=== PATIENT | male | born 1940 | race Caucasian/White ===

== ENCOUNTER → 2016-06-14 | Day surgery (SDC) | payer MEDICARE, OTHER ==
[~2016-06-14] VITALS: Ht 175.3 cm; Wt 94.6 kg
[~2016-06-14] MED LIST: ACETAMINOPHEN325 MG PO; ADVAIR 250/5028 PUFF INH; ADVAIR HFA 115-28 GM INH; ALLOPURINOL300 MG PO; AMARYL2 MG PO; AMLODIPINE BESY10 MG PO; ANTACID LIQUID355 ML PO; ASPIRIN CHEWABL81 MG PO; ASPIRIN EC325 MG PO; ATROVENT (00.2 MG/ML INH; CERTAGEN1 EACH PO; CLARITIN10 MG PO; COLACE100 MG PO; CRANBERRY500 M1 PO; CRESTOR40 M1 PO; CRESTOR40 MG PO; DEXAMETHASONE 2M2 MG PO; DUONEB 2.5-0.5M1 AMP NEB; FLEET ENEMA133 ML PR; FLONASE ALLER15.8 ML; FLORINEF0.1 MG PO; FOLIC ACID1 MG PO; HUMULIN R100 UNIT/1 SQ; IMDUR 30MG TABL30 MG PO; ISOSORBIDE MONO60 MG PO; K-DUR20 MEQ PO; KLOR-CON M2020 MEQ PO; LACTINEX1 EACH PO; LASIX20 MG PO; LASIX40 MG PO; LAXATIVE SUPPOS10 MG PR; LIDOCAINE VISC100 ML SSW; LIPITOR40 MG PO; LOPRESSOR100 MG PO; LOPRESSOR25 MG PO; LOVENOX40 MG/0.1 PO; MAG-OXIDE 400M400 MG PO; MAGNESIUM250 MG PO; MEGACE ORA6 TSP/1 OZ PO; MEGACE40 MG PO; MILK OF MA400 MG/5 M PO; MUCINEX 600MG600 MG PO; NITROQUIK SL0.4 MG PO; NORCO 5-325 TA1 EAC1 PO; NYSTATIN SUSP1 ML/ML PO; OMEPRAZOLE40 MG PO; PANTOPRAZOLE SO20 MG PO; PLAVIX75 MG PO; PREVALITE4 GM PO; PROAIR HFA8.5 GM INH; PROAIR HFA8.5 GM PO; PROTONIX 40MG T40 MG PO; RANEXA1000 MG PO; RANEXA500 MG PO; SENOKOT8.6 MG PO; SPIRIVA18 MCG INH; TYLENOL650 MG PR; VANCOCIN HCL125 MG PO; VANCOMYCIN HCL125 MG PO; XOPENEX (11.25 MG/3 INH; ZOLOFT25 MG PO
== END | disposition home or self-care (01) ==
LOC: FAS 12:35
DX: I87.2 Venous insufficiency (chronic) (peripheral) (principal); I25.119 Atherosclerotic heart disease of native coronary artery with unspecified angina pectoris; I10 Essential (primary) hypertension; E11.9 Type 2 diabetes mellitus without complications; E78.5 Hyperlipidemia, unspecified; G47.33 Obstructive sleep apnea (adult) (pediatric); Z82.49 Family history of ischemic heart disease and other diseases of the circulatory system; Z87.891 Personal history of nicotine dependence; Z79.82 Long term (current) use of aspirin; Z79.2 Long term (current) use of antibiotics; Z79.84 Long term (current) use of oral hypoglycemic drugs; Z79.02 Long term (current) use of antithrombotics/antiplatelets; Z79.899 Other long term (current) drug therapy
CPT/HCPCS: 71010; 76000; C1788; J1644; J2704; J3010

== ENCOUNTER 2016-08-25 22:01 | Inpatient (IN) | payer MEDICARE, OTHER ==
[~2016-08-25] VITALS: Ht 175.3 cm; Wt 80.7 kg
[2016-08-25 23:51] LABS: BASOPHIL 0.7 % (0-2); EOSINOPHIL 3.1 % (0-7); HCT 35.4 % (42.0-52.0); HGB 12.4 g/dl (13.2-18.0); LYMPHOCYTE 11.8 % (15-48); MCV 88.5 fL (78.0-100.0); MPV 9.9 fL (6.0-9.5); NEUTROPHIL 52.3 % (41-80); PLT 243 K/uL (150-400); RDW 17.7 % (11.5-14.0); WBC 5.4 K/uL (4.0-10.5)
[2016-08-25 23:54] LABS: MONOCYTE 32.1 % (0-12)
[2016-08-26 00:04] LABS: INR 1.19 (0.9-1.2); PROTHROMBIN TIME 14.7 SECONDS (11.7-14.0); PTT 28.8 SECONDS (23.2-31.4)
[2016-08-26 00:06] LABS: D-DIMER 0.69 ug/mLFEU (0.00-0.41)
[2016-08-26 00:15] LABS: TROPONIN T < 0.010 ng/mL
[2016-08-26 00:19] LABS: PRO-BNP 1890 pg/mL (0-450)
[2016-08-26 00:33] LABS: ALBUMIN 3.1 g/dL (3.4-4.8); BILIRUBIN - TOTAL 0.6 mg/dL (0.1-1.0); GLOBULIN (CALCULATION) 2.5 g/dL (2.2-4.2); TOTAL PROTEIN 5.6 g/dL (6.4-8.3)
[2016-08-26 06:40] LABS: CREATININE 1.1 mg/dL (0.7-1.2); MAGNESIUM 1.58 mg/dL (1.40-2.10); POTASSIUM 2.7 mmol/L (3.5-5.1)
[2016-08-26 06:43] LABS: TROPONIN T < 0.010 ng/mL
[2016-08-26 13:02] LABS: TROPONIN T < 0.010 ng/mL
[2016-08-27 04:35] LABS: HCT 34.7 % (42.0-52.0); HGB 11.8 g/dl (13.2-18.0); MCH 30.2 pg (25.0-31.0); MCV 88.7 fL (78.0-100.0); MPV 9.9 fL (6.0-9.5); RBC 3.91 M/uL (4.70-6.00); RDW 17.7 % (11.5-14.0); WBC 5.4 K/uL (4.0-10.5)
[2016-08-27 04:54] LABS: CREATININE 1.2 mg/dL (0.7-1.2); MAGNESIUM 1.66 mg/dL (1.40-2.10); POTASSIUM 3.4 mmol/L (3.5-5.1)
[2016-08-28 05:07] LABS: CREATININE 1.2 mg/dL (0.7-1.2); MAGNESIUM 1.52 mg/dL (1.40-2.10); POTASSIUM 3.5 mmol/L (3.5-5.1)
[2016-08-28] MEDS ORDERED: AMARYL2 MG PO (14:12)
[2016-08-28] MEDS ORDERED: LOPRESSOR100 MG PO (14:12)
[2016-08-28] MEDS ORDERED: CRESTOR40 MG PO (14:13)
[2016-08-28] MEDS ORDERED: PLAVIX75 MG PO (14:13)
[2016-08-28] MEDS ORDERED: RANEXA1000 MG PO (14:13)
[2016-08-28] MEDS ORDERED: K-DUR20 MEQ PO (14:14)
[2016-08-28] MEDS ORDERED: ISOSORBIDE MONO60 MG PO (14:14)
[2016-08-28] MEDS ORDERED: AMLODIPINE BESY10 MG PO (14:14)
[2016-08-28] MEDS ORDERED: LASIX20 MG PO (14:14)
[2016-08-28] MEDS ORDERED: OMEPRAZOLE40 MG PO (14:16)
[2016-08-28] MEDS ORDERED: ASPIRIN EC325 MG PO (14:16)
[2016-08-28] MEDS ORDERED: CRANBERRY500 M1 PO (14:17)
[2016-08-28] MEDS ORDERED: CERTAGEN1 EACH PO (14:17)
[2016-08-28] MEDS ORDERED: MAGNESIUM250 MG PO (14:17)
[2016-08-28] MEDS ORDERED: MUCINEX 600MG600 MG PO (14:18)
[2016-08-28] MEDS ORDERED: CLARITIN10 MG PO (14:18)
[2016-08-28] MEDS ORDERED: ALLOPURINOL300 MG PO (14:18)
[2016-08-28] MEDS ORDERED: FLONASE ALLER15.8 ML (14:19)
[2016-08-28] MEDS ORDERED: SPIRIVA18 MCG INH (14:19)
[2016-08-28] MEDS ORDERED: NITROQUIK SL0.4 MG PO (14:20)
[2016-08-28] MEDS ORDERED: DEXAMETHASONE 2M2 MG PO (14:21)
[2016-08-28] MEDS ORDERED: PROAIR HFA8.5 GM PO (14:21)
[2016-11-04] MEDS ORDERED: HUMULIN R100 UNIT/1 SQ (15:36)
[2016-11-04] MEDS ORDERED: FLONASE ALLER15.8 ML (15:37)
[2016-11-04] MEDS ORDERED: LIDOCAINE VISC100 ML SSW (15:42)
[2016-11-04] MEDS ORDERED: LOPRESSOR25 MG PO (15:44)
[2016-11-04] MEDS ORDERED: FLORINEF0.1 MG PO (15:44)
[2016-11-04] MEDS ORDERED: MAG-OXIDE 400M400 MG PO (15:44)
[2016-11-04] MEDS ORDERED: K-DUR20 MEQ PO (15:45)
[2016-11-04] MEDS ORDERED: LASIX40 MG PO (15:46)
[2016-11-04] MEDS ORDERED: MUCINEX 600MG600 MG PO (15:46)
[2016-11-04] MEDS ORDERED: FOLIC ACID1 MG PO (15:46)
[2016-11-04] MEDS ORDERED: ZOLOFT25 MG PO (15:47)
[2016-11-04] MEDS ORDERED: PROTONIX 40MG T40 MG PO (15:47)
[2016-11-04] MEDS ORDERED: NORCO 5-325 TA1 EAC1 PO (15:49)
[2016-11-04] MEDS ORDERED: LOVENOX40 MG/0.1 PO (15:49)
[2016-11-04] MEDS ORDERED: AMARYL2 MG PO (15:50)
[2016-11-04] MEDS ORDERED: PLAVIX75 MG PO (15:50)
[2016-11-04] MEDS ORDERED: RANEXA500 MG PO (15:52)
[2016-11-04] MEDS ORDERED: CRESTOR40 M1 PO (15:52)
[2016-11-04] MEDS ORDERED: FLEET ENEMA133 ML PR (15:53)
[2016-11-04] MEDS ORDERED: ASPIRIN EC325 MG PO (15:53)
[2016-11-04] MEDS ORDERED: COLACE100 MG PO ×2 (15:53→15:56)
[2016-11-04] MEDS ORDERED: ANTACID LIQUID355 ML PO (15:54)
[2016-11-04] MEDS ORDERED: ACETAMINOPHEN325 MG PO (15:55)
[2016-11-04] MEDS ORDERED: TYLENOL650 MG PR (15:55)
[2016-11-04] MEDS ORDERED: SENOKOT8.6 MG PO (15:56)
[2016-11-04] MEDS ORDERED: LAXATIVE SUPPOS10 MG PR (15:56)
[2016-11-04] MEDS ORDERED: MILK OF MA400 MG/5 M PO (15:57)
[2016-11-04] MEDS ORDERED: ATROVENT (00.2 MG/ML INH ×2 (15:57→15:58)
[2016-11-04] MEDS ORDERED: XOPENEX (11.25 MG/3 INH ×2 (15:57→15:58)
[2016-11-04] MEDS ORDERED: ADVAIR 250/5028 PUFF INH (15:59)
[2016-12-22] MEDS ORDERED: LACTINEX1 EACH PO (14:44)
[2016-12-22] MEDS ORDERED: VANCOCIN HCL125 MG PO (14:45)
[2016-12-22] MEDS ORDERED: MEGACE ORA6 TSP/1 OZ PO (14:48)
[2016-12-22] MEDS ORDERED: PREVALITE4 GM PO (14:49)
[2016-12-24] MEDS ORDERED: LIPITOR40 MG PO (15:12)
[2016-12-24] MEDS ORDERED: PLAVIX75 MG PO (15:12)
[2016-12-24] MEDS ORDERED: ASPIRIN CHEWABL81 MG PO (15:12)
[2016-12-24] MEDS ORDERED: FLORINEF0.1 MG PO (15:13)
[2016-12-24] MEDS ORDERED: FOLIC ACID1 MG PO (15:13)
[2016-12-24] MEDS ORDERED: LASIX20 MG PO (15:14)
[2016-12-24] MEDS ORDERED: FLONASE ALLER15.8 ML (15:14)
[2016-12-24] MEDS ORDERED: MEGACE40 MG PO (15:14)
[2016-12-24] MEDS ORDERED: AMARYL2 MG PO (15:14)
[2016-12-24] MEDS ORDERED: LOPRESSOR25 MG PO (15:14)
[2016-12-24] MEDS ORDERED: MUCINEX 600MG600 MG PO (15:15)
[2016-12-24] MEDS ORDERED: NITROQUIK SL0.4 MG PO (15:16)
[2016-12-24] MEDS ORDERED: NYSTATIN SUSP1 ML/ML PO (15:16)
[2016-12-24] MEDS ORDERED: RANEXA1000 MG PO (15:17)
[2016-12-24] MEDS ORDERED: KLOR-CON M2020 MEQ PO (15:17)
[2016-12-24] MEDS ORDERED: PANTOPRAZOLE SO20 MG PO (15:17)
[2016-12-24] MEDS ORDERED: SPIRIVA18 MCG INH (15:18)
[2016-12-24] MEDS ORDERED: ZOLOFT25 MG PO (15:18)
[2016-12-24] MEDS ORDERED: ADVAIR HFA 115-28 GM INH (15:19)
[2016-12-24] MEDS ORDERED: PROAIR HFA8.5 GM INH (15:19)
[2016-12-24] MEDS ORDERED: VANCOMYCIN HCL125 MG PO (15:20)
== END 2016-08-28 15:15 | disposition home health service (06) | DRG 189 ==
LOC: FER 22:01 → FTCU 08-26 03:21
PROVIDERS: Allergy & Immunology; Emergency Medicine; Internal Medicine; ADMIT Internal Medicine
DX: J81.0 Acute pulmonary edema (principal); J96.01 Acute respiratory failure with hypoxia; C85.10 Unspecified B-cell lymphoma, unspecified site; J44.9 Chronic obstructive pulmonary disease, unspecified; I25.10 Atherosclerotic heart disease of native coronary artery without angina pectoris; E87.6 Hypokalemia; I10 Essential (primary) hypertension; E11.9 Type 2 diabetes mellitus without complications; E78.5 Hyperlipidemia, unspecified; K21.9 Gastro-esophageal reflux disease without esophagitis; N20.0 Calculus of kidney; Z79.899 Other long term (current) drug therapy; Z95.5 Presence of coronary angioplasty implant and graft; Z79.02 Long term (current) use of antithrombotics/antiplatelets; Z79.82 Long term (current) use of aspirin; Z87.891 Personal history of nicotine dependence; Z79.84 Long term (current) use of oral hypoglycemic drugs
CPT/HCPCS: 36415; 36600; 71020; 71275; 80048; 80053; 82550; 82553; 82803; 82962; 83735; 83880; 84132; 84484; 85025; 85379; 85610; 85730; 87804; 87899; 93005; 94640; 94664; J1940; Q9967

== ENCOUNTER 2016-08-31 11:09 | Inpatient (IN) | payer MEDICARE, OTHER ==
[~2016-08-31] VITALS: Ht 175.3 cm; Wt 80.4 kg
[~2016-08-31 11:09] MED LIST changes: -ACETAMINOPHEN325 MG PO; -ADVAIR 250/5028 PUFF INH; -ADVAIR HFA 115-28 GM INH; -ANTACID LIQUID355 ML PO; -ASPIRIN CHEWABL81 MG PO; -ATROVENT (00.2 MG/ML INH; -COLACE100 MG PO; -CRESTOR40 M1 PO; -DUONEB 2.5-0.5M1 AMP NEB; -FLEET ENEMA133 ML PR; -FLORINEF0.1 MG PO; -FOLIC ACID1 MG PO; -HUMULIN R100 UNIT/1 SQ; -IMDUR 30MG TABL30 MG PO; -KLOR-CON M2020 MEQ PO; -LACTINEX1 EACH PO; -LASIX40 MG PO; -LAXATIVE SUPPOS10 MG PR; -LIDOCAINE VISC100 ML SSW; -LIPITOR40 MG PO; -LOPRESSOR25 MG PO; -LOVENOX40 MG/0.1 PO; -MAG-OXIDE 400M400 MG PO; -MEGACE ORA6 TSP/1 OZ PO; -MEGACE40 MG PO; -MILK OF MA400 MG/5 M PO; -NORCO 5-325 TA1 EAC1 PO; -NYSTATIN SUSP1 ML/ML PO; -PANTOPRAZOLE SO20 MG PO; -PREVALITE4 GM PO; -PROAIR HFA8.5 GM INH; -PROTONIX 40MG T40 MG PO; -RANEXA500 MG PO; -SENOKOT8.6 MG PO; -TYLENOL650 MG PR; -VANCOCIN HCL125 MG PO; -VANCOMYCIN HCL125 MG PO; -XOPENEX (11.25 MG/3 INH; -ZOLOFT25 MG PO
[2016-08-31 11:49] LABS: BASOPHIL 0.5 % (0-2); HCT 34.9 % (42.0-52.0); HGB 11.8 g/dl (13.2-18.0); LYMPHOCYTE 12.1 % (15-48); MCH 30.5 pg (25.0-31.0); MCHC 33.8 g/dL (32.0-36.0); MCV 90.2 fL (78.0-100.0); MONOCYTE 19.3 % (0-12); MPV 10.4 fL (6.0-9.5); NEUTROPHIL 66.1 % (41-80); PLT 213 K/uL (150-400); RBC 3.87 M/uL (4.70-6.00); RDW 17.6 % (11.5-14.0)
[2016-08-31 11:52] LABS: WBC 7.8 K/uL (4.0-10.5)
[2016-08-31 12:03] LABS: ALBUMIN 2.8 g/dL (3.4-4.8); BILIRUBIN - TOTAL 0.5 mg/dL (0.1-1.0); CREATININE 1.1 mg/dL (0.7-1.2); GLOBULIN (CALCULATION) 2.9 g/dL (2.2-4.2); POTASSIUM 4.2 mmol/L (3.5-5.1); TOTAL PROTEIN 5.7 g/dL (6.4-8.3)
[2016-08-31 12:05] LABS: TROPONIN T < 0.010 ng/mL
[2016-08-31 12:06] LABS: PRO-BNP 1356 pg/mL (0-450)
[2016-09-01 07:08] LABS: BASOPHIL 0.1 % (0-2); EOSINOPHIL 0.1 % (0-7); HCT 33.7 % (42.0-52.0); HGB 11.6 g/dl (13.2-18.0); LYMPHOCYTE 6.6 % (15-48); MCH 30.9 pg (25.0-31.0); MCHC 34.4 g/dL (32.0-36.0); MCV 89.6 fL (78.0-100.0); MONOCYTE 9.1 % (0-12); MPV 9.8 fL (6.0-9.5); NEUTROPHIL 84.1 % (41-80); PLT 185 K/uL (150-400); RBC 3.76 M/uL (4.70-6.00); RDW 17.6 % (11.5-14.0)
[2016-09-01 07:27] LABS: POTASSIUM 4.1 mmol/L (3.5-5.1)
[2016-09-01 07:30] LABS: WBC 7.6 K/uL (4.0-10.5)
[2016-09-02] MEDS ORDERED: LASIX40 MG PO (12:27)
[2016-09-02] MEDS ORDERED: IMDUR 30MG TABL30 MG PO (12:28)
[2016-09-02] MEDS ORDERED: DUONEB 2.5-0.5M1 AMP NEB (12:29)
[2016-09-02] MEDS ORDERED: ADVAIR 250/5028 PUFF INH (14:21)
[2016-11-04] MEDS ORDERED: HUMULIN R100 UNIT/1 SQ (15:36)
[2016-11-04] MEDS ORDERED: FLONASE ALLER15.8 ML (15:37)
[2016-11-04] MEDS ORDERED: LIDOCAINE VISC100 ML SSW (15:42)
[2016-11-04] MEDS ORDERED: LOPRESSOR25 MG PO (15:44)
[2016-11-04] MEDS ORDERED: MAG-OXIDE 400M400 MG PO (15:44)
[2016-11-04] MEDS ORDERED: FLORINEF0.1 MG PO (15:44)
[2016-11-04] MEDS ORDERED: K-DUR20 MEQ PO (15:45)
[2016-11-04] MEDS ORDERED: FOLIC ACID1 MG PO (15:46)
[2016-11-04] MEDS ORDERED: LASIX40 MG PO (15:46)
[2016-11-04] MEDS ORDERED: MUCINEX 600MG600 MG PO (15:46)
[2016-11-04] MEDS ORDERED: PROTONIX 40MG T40 MG PO (15:47)
[2016-11-04] MEDS ORDERED: ZOLOFT25 MG PO (15:47)
[2016-11-04] MEDS ORDERED: LOVENOX40 MG/0.1 PO (15:49)
[2016-11-04] MEDS ORDERED: NORCO 5-325 TA1 EAC1 PO (15:49)
[2016-11-04] MEDS ORDERED: PLAVIX75 MG PO (15:50)
[2016-11-04] MEDS ORDERED: AMARYL2 MG PO (15:50)
[2016-11-04] MEDS ORDERED: RANEXA500 MG PO (15:52)
[2016-11-04] MEDS ORDERED: CRESTOR40 M1 PO (15:52)
[2016-11-04] MEDS ORDERED: ASPIRIN EC325 MG PO (15:53)
[2016-11-04] MEDS ORDERED: COLACE100 MG PO ×2 (15:53→15:56)
[2016-11-04] MEDS ORDERED: FLEET ENEMA133 ML PR (15:53)
[2016-11-04] MEDS ORDERED: ANTACID LIQUID355 ML PO (15:54)
[2016-11-04] MEDS ORDERED: TYLENOL650 MG PR (15:55)
[2016-11-04] MEDS ORDERED: ACETAMINOPHEN325 MG PO (15:55)
[2016-11-04] MEDS ORDERED: LAXATIVE SUPPOS10 MG PR (15:56)
[2016-11-04] MEDS ORDERED: SENOKOT8.6 MG PO (15:56)
[2016-11-04] MEDS ORDERED: MILK OF MA400 MG/5 M PO (15:57)
[2016-11-04] MEDS ORDERED: XOPENEX (11.25 MG/3 INH ×2 (15:57→15:58)
[2016-11-04] MEDS ORDERED: ATROVENT (00.2 MG/ML INH ×2 (15:57→15:58)
[2016-11-04] MEDS ORDERED: ADVAIR 250/5028 PUFF INH (15:59)
[2016-12-22] MEDS ORDERED: LACTINEX1 EACH PO (14:44)
[2016-12-22] MEDS ORDERED: VANCOCIN HCL125 MG PO (14:45)
[2016-12-22] MEDS ORDERED: MEGACE ORA6 TSP/1 OZ PO (14:48)
[2016-12-22] MEDS ORDERED: PREVALITE4 GM PO (14:49)
[2016-12-24] MEDS ORDERED: ASPIRIN CHEWABL81 MG PO (15:12)
[2016-12-24] MEDS ORDERED: LIPITOR40 MG PO (15:12)
[2016-12-24] MEDS ORDERED: PLAVIX75 MG PO (15:12)
[2016-12-24] MEDS ORDERED: FLORINEF0.1 MG PO (15:13)
[2016-12-24] MEDS ORDERED: FOLIC ACID1 MG PO (15:13)
[2016-12-24] MEDS ORDERED: MEGACE40 MG PO (15:14)
[2016-12-24] MEDS ORDERED: LOPRESSOR25 MG PO (15:14)
[2016-12-24] MEDS ORDERED: FLONASE ALLER15.8 ML (15:14)
[2016-12-24] MEDS ORDERED: AMARYL2 MG PO (15:14)
[2016-12-24] MEDS ORDERED: LASIX20 MG PO (15:14)
[2016-12-24] MEDS ORDERED: MUCINEX 600MG600 MG PO (15:15)
[2016-12-24] MEDS ORDERED: NITROQUIK SL0.4 MG PO (15:16)
[2016-12-24] MEDS ORDERED: NYSTATIN SUSP1 ML/ML PO (15:16)
[2016-12-24] MEDS ORDERED: PANTOPRAZOLE SO20 MG PO (15:17)
[2016-12-24] MEDS ORDERED: KLOR-CON M2020 MEQ PO (15:17)
[2016-12-24] MEDS ORDERED: RANEXA1000 MG PO (15:17)
[2016-12-24] MEDS ORDERED: ZOLOFT25 MG PO (15:18)
[2016-12-24] MEDS ORDERED: SPIRIVA18 MCG INH (15:18)
[2016-12-24] MEDS ORDERED: ADVAIR HFA 115-28 GM INH (15:19)
[2016-12-24] MEDS ORDERED: PROAIR HFA8.5 GM INH (15:19)
[2016-12-24] MEDS ORDERED: VANCOMYCIN HCL125 MG PO (15:20)
== END 2016-09-02 17:02 | disposition home health service (06) | DRG 189 ==
LOC: FER 11:09 → FMS 15:18
PROVIDERS: Internal Medicine; ADMIT Internal Medicine
DX: J96.21 Acute and chronic respiratory failure with hypoxia (principal); I11.0 Hypertensive heart disease with heart failure; C85.10 Unspecified B-cell lymphoma, unspecified site; I50.32 Chronic diastolic (congestive) heart failure; J44.9 Chronic obstructive pulmonary disease, unspecified; I25.10 Atherosclerotic heart disease of native coronary artery without angina pectoris; E11.9 Type 2 diabetes mellitus without complications; E78.5 Hyperlipidemia, unspecified; K21.9 Gastro-esophageal reflux disease without esophagitis; Z95.5 Presence of coronary angioplasty implant and graft; Z79.899 Other long term (current) drug therapy; Z79.82 Long term (current) use of aspirin; Z87.891 Personal history of nicotine dependence; Z79.84 Long term (current) use of oral hypoglycemic drugs
CPT/HCPCS: 36415; 36600; 71020; 71275; 80048; 80053; 82550; 82553; 82803; 82962; 83735; 83880; 84132; 84484; 85025; 85379; 85610; 85730; 87804; 87899; 93005; 94640; 94664; 97162; 97166; 97530-GP; J1940; J2930; Q9967